=== PATIENT | female | born 1950 | race Caucasian/White ===

== ENCOUNTER 2016-04-19 08:19 | Inpatient (IN) | payer BC, MEDICARE ==
[2016-04-19] MEDS ORDERED: Bisacodyl SUPP* 10 MG SUPP PR PRN (11:52)
[2016-04-19] MEDS ORDERED: Magnesium Hydroxide LIQ* 30 ML UDC PO PRN (11:52)
[2016-04-19] MEDS ORDERED: Al Hydrox/Mg Hydrox/Simet LIQ* 30 ML UDC PO PRN (11:52)
[2016-04-19] MEDS ORDERED: LACTULOSE* 30 ML UDC PO PRN (11:52)
[2016-04-19] MEDS ORDERED: Dextrose 50% Syringe 50 ML* 25 GM/50 ML SYRINGE IV PUSH PRN (12:10)
[2016-04-19] MEDS: Insulin LISPRO* 1 UNITS UNIT SUBCUT SCH ×3 (13:57→22:07)
[2016-04-19] MEDS: traMADol TAB* 50 MG PO PRN ×3 (14:19→23:49)
[2016-04-19] MEDS: Nystatin TOP POWDER* 15 GM BTL TOPICAL SCH ×2 (16:08→21:07)
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
[2016-04-19] MEDS: metFORMIN* 500 MG TAB PO SCH (17:03)
[2016-04-19] MEDS: Acetaminophen TAB* 325 MG PO PRN ×2 (17:04→20:55)
[2016-04-19] MEDS: Senna TAB PO PRN (20:55)
[2016-04-19] MEDS: Enoxaparin(*) 30 MG/0.3 ML SYR SUBCUT SCH (20:57)
[2016-04-19] MEDS: Docusate CAP* 100 MG PO SCH (20:59)
[2016-04-20] MEDS: Acetaminophen TAB* 325 MG PO PRN ×4 (03:35→18:44)
[2016-04-20 07:10] LABS: Hematocrit 27 % (35-47); Hemoglobin 9.2 g/dl (12.0-16.0); Mean Corpuscular HGB Conc 34 g/dl (31-36); Mean Corpuscular Hemoglobin 31 pg (27-31); Mean Corpuscular Volume 91 fL (80-97); Mean Platelet Volume 8 um3 (7.4-10.4); Red Blood Count 2.97 10^6/ul (4.0-5.4); Red Cell Distribution Width 13 % (10.5-15); White Blood Count 7.6 10^3/ul (3.5-10.8)
[2016-04-20 07:21] LABS: Albumin 2.7 g/dL (3.2-5.2); BUN/Creatinine Ratio 24.7 (8-20); Calcium 8.9 mg/dL (8.6-10.3); EGFR African American 102.6 (>60); EGFR Non-African American 79.8 (>60); Globulin 3.5 g/dL (2-4); Potassium 3.8 mmol/L (3.5-5.0); Total Bilirubin 0.9 mg/dL (0.2-1.0); Total Protein 6.2 g/dL (6.4-8.9)
[2016-04-20] MEDS: Insulin LISPRO* 1 UNITS UNIT SUBCUT SCH ×4 (07:59→21:09)
[2016-04-20] MEDS: Docusate CAP* 100 MG PO SCH ×2 (08:18→21:09)
[2016-04-20] MEDS: metFORMIN* 500 MG TAB PO SCH ×2 (08:18→17:07)
[2016-04-20] MEDS: Aspirin EC Low Dose* 81 MG TAB.EC PO SCH (08:18)
[2016-04-20] MEDS: traMADol TAB* 50 MG PO PRN ×3 (08:19→16:14)
[2016-04-20] MEDS: Enoxaparin(*) 30 MG/0.3 ML SYR SUBCUT SCH ×2 (08:19→21:10)
[2016-04-20] MEDS: IRBESARTAN 300 MG PO SCH (08:41)
[2016-04-20] MEDS: Nystatin TOP POWDER* 15 GM BTL TOPICAL SCH ×3 (09:55→21:43)
[2016-04-20] MEDS ORDERED: Potassium Chlor TAB* 10 MEQ TAB.ER PO SCH (10:00)
[2016-04-20] MEDS: Senna TAB PO PRN (21:09)
[2016-04-20] MEDS ORDERED: guaiFENesin LIQ* 100 MG/5 ML UDC PO PRN (22:18)
[2016-04-20] MEDS: Benzocaine/Menthol LOZ* 1 LOZENGE PO PRN (22:33)
[2016-04-21] MEDS: traMADol TAB* 50 MG PO PRN ×5 (00:08→23:27)
[2016-04-21] MEDS: Acetaminophen TAB* 325 MG PO PRN ×4 (03:30→20:57)
[2016-04-21] MEDS: Insulin LISPRO* 1 UNITS UNIT SUBCUT SCH (07:55)
[2016-04-21] MEDS: POTASSIUM CHLOR 10 MEQ PO SCH (08:16)
[2016-04-21] MEDS: Aspirin EC Low Dose* 81 MG TAB.EC PO SCH (08:16)
[2016-04-21] MEDS: IRBESARTAN 300 MG PO SCH (08:16)
[2016-04-21] MEDS: metFORMIN* 500 MG TAB PO SCH ×2 (08:17→17:07)
[2016-04-21] MEDS: Docusate CAP* 100 MG PO SCH ×2 (08:17→19:37)
[2016-04-21] MEDS: Enoxaparin(*) 30 MG/0.3 ML SYR SUBCUT SCH ×2 (08:18→20:03)
[2016-04-21] MEDS ORDERED: Zinc Oxide 16% PASTE* (Butt Patse) 1 TUBE TOPICAL SCH (09:00)
[2016-04-21] MEDS: Benzocaine/Menthol LOZ* 1 LOZENGE PO PRN (13:49)
[2016-04-21] MEDS: Zinc Oxide 16% PASTE* (Butt Patse) 1 TUBE TOPICAL SCH (20:03)
[2016-04-22] MEDS: Zinc Oxide 16% PASTE* (Butt Patse) 1 TUBE TOPICAL SCH ×3 (00:08→17:26)
[2016-04-22] MEDS: Acetaminophen TAB* 325 MG PO PRN ×2 (03:56→10:45)
[2016-04-22] MEDS: Benzocaine/Menthol LOZ* 1 LOZENGE PO PRN ×2 (06:17→16:31)
[2016-04-22 07:06] LABS: Hematocrit 27 % (35-47); Hemoglobin 9.2 g/dl (12.0-16.0); Mean Corpuscular HGB Conc 34 g/dl (31-36); Mean Corpuscular Hemoglobin 31 pg (27-31); Mean Corpuscular Volume 92 fL (80-97); Mean Platelet Volume 7 um3 (7.4-10.4); Red Blood Count 2.98 10^6/ul (4.0-5.4); Red Cell Distribution Width 14 % (10.5-15)
[2016-04-22] MEDS: traMADol TAB* 50 MG PO PRN ×4 (08:23→20:51)
[2016-04-22] MEDS: Aspirin EC Low Dose* 81 MG TAB.EC PO SCH (08:23)
[2016-04-22] MEDS: metFORMIN* 500 MG TAB PO SCH ×2 (08:23→16:31)
[2016-04-22] MEDS: Docusate CAP* 100 MG PO SCH ×2 (08:23→20:52)
[2016-04-22] MEDS: Enoxaparin(*) 30 MG/0.3 ML SYR SUBCUT SCH ×2 (08:24→20:52)
[2016-04-22] MEDS: IRBESARTAN 300 MG PO SCH (08:24)
[2016-04-22] MEDS: POTASSIUM CHLOR 10 MEQ PO SCH (08:24)
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
[2016-04-23] MEDS: Acetaminophen TAB* 325 MG PO PRN ×5 (00:46→21:26)
[2016-04-23] MEDS: Zinc Oxide 16% PASTE* (Butt Patse) 1 TUBE TOPICAL SCH ×3 (00:46→16:08)
[2016-04-23] MEDS: traMADol TAB* 50 MG PO PRN ×4 (03:12→17:50)
[2016-04-23] MEDS: metFORMIN* 500 MG TAB PO SCH ×2 (07:55→16:07)
[2016-04-23] MEDS: Docusate CAP* 100 MG PO SCH ×2 (07:55→21:28)
[2016-04-23] MEDS: Aspirin EC Low Dose* 81 MG TAB.EC PO SCH (07:55)
[2016-04-23] MEDS: IRBESARTAN 300 MG PO SCH (07:56)
[2016-04-23] MEDS: Benzocaine/Menthol LOZ* 1 LOZENGE PO PRN (07:56)
[2016-04-23] MEDS: Enoxaparin(*) 30 MG/0.3 ML SYR SUBCUT SCH ×2 (07:58→21:26)
[2016-04-23] MEDS: Potassium Chloride LIQUID* 20 MEQ PACKET PO SCH (08:01)
[2016-04-24] MEDS: traMADol TAB* 50 MG PO PRN ×3 (01:05→13:29)
[2016-04-24] MEDS: Zinc Oxide 16% PASTE* (Butt Patse) 1 TUBE TOPICAL SCH ×3 (01:08→16:34)
[2016-04-24] MEDS: Acetaminophen TAB* 325 MG PO PRN ×3 (05:56→19:22)
[2016-04-24] MEDS: metFORMIN* 500 MG TAB PO SCH ×2 (08:08→17:03)
[2016-04-24] MEDS: Aspirin EC Low Dose* 81 MG TAB.EC PO SCH (08:08)
[2016-04-24] MEDS: Potassium Chloride LIQUID* 20 MEQ PACKET PO SCH (08:09)
[2016-04-24] MEDS: Docusate CAP* 100 MG PO SCH ×2 (08:10→20:23)
[2016-04-24] MEDS: Enoxaparin(*) 30 MG/0.3 ML SYR SUBCUT SCH ×2 (08:11→20:23)
[2016-04-24] MEDS: IRBESARTAN 300 MG PO SCH (08:11)
[2016-04-25] MEDS: Zinc Oxide 16% PASTE* (Butt Patse) 1 TUBE TOPICAL SCH ×3 (00:20→19:40)
[2016-04-25] MEDS: Acetaminophen TAB* 325 MG PO PRN ×3 (00:33→19:37)
[2016-04-25] MEDS: Benzocaine/Menthol LOZ* 1 LOZENGE PO PRN (00:33)
[2016-04-25] MEDS: Enoxaparin(*) 30 MG/0.3 ML SYR SUBCUT SCH ×2 (08:01→19:38)
[2016-04-25] MEDS: metFORMIN* 500 MG TAB PO SCH ×2 (08:01→16:44)
[2016-04-25] MEDS: Aspirin EC Low Dose* 81 MG TAB.EC PO SCH (08:02)
[2016-04-25] MEDS: traMADol TAB* 50 MG PO PRN ×3 (08:02→16:46)
[2016-04-25] MEDS: Potassium Chloride LIQUID* 20 MEQ PACKET PO SCH (08:02)
[2016-04-25] MEDS: Docusate CAP* 100 MG PO SCH ×2 (08:02→19:37)
[2016-04-25] MEDS: IRBESARTAN 300 MG PO SCH (08:03)
[2016-04-26] MEDS: traMADol TAB* 50 MG PO PRN ×3 (02:14→15:23)
[2016-04-26] MEDS: Zinc Oxide 16% PASTE* (Butt Patse) 1 TUBE TOPICAL SCH ×3 (02:32→17:12)
[2016-04-26] MEDS: Acetaminophen TAB* 325 MG PO PRN ×3 (06:33→19:49)
[2016-04-26] MEDS: IRBESARTAN 300 MG PO SCH (08:00)
[2016-04-26] MEDS: Docusate CAP* 100 MG PO SCH ×2 (08:00→19:49)
[2016-04-26] MEDS: Aspirin EC Low Dose* 81 MG TAB.EC PO SCH (08:00)
[2016-04-26] MEDS: metFORMIN* 500 MG TAB PO SCH ×2 (08:00→17:12)
[2016-04-26] MEDS: Potassium Chloride LIQUID* 20 MEQ PACKET PO SCH (08:02)
[2016-04-26] MEDS: Enoxaparin(*) 30 MG/0.3 ML SYR SUBCUT SCH ×2 (08:03→19:49)
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
[2016-04-27] MEDS: Zinc Oxide 16% PASTE* (Butt Patse) 1 TUBE TOPICAL SCH ×4 (02:19→16:11)
[2016-04-27] MEDS: traMADol TAB* 50 MG PO PRN ×3 (02:53→13:05)
[2016-04-27 07:57] LABS: Hematocrit 30 % (35-47); Hemoglobin 10.1 g/dl (12.0-16.0); Mean Corpuscular HGB Conc 34 g/dl (31-36); Mean Corpuscular Hemoglobin 31 pg (27-31); Mean Corpuscular Volume 92 fL (80-97); Mean Platelet Volume 8 um3 (7.4-10.4); Red Blood Count 3.28 10^6/ul (4.0-5.4); Red Cell Distribution Width 14 % (10.5-15); White Blood Count 6.5 10^3/ul (3.5-10.8)
[2016-04-27 08:07] LABS: BUN/Creatinine Ratio 23.3 (8-20); Calcium 9.1 mg/dL (8.6-10.3); EGFR African American 102.6 (>60); EGFR Non-African American 79.8 (>60); Globulin 3.6 g/dL (2-4); Potassium 3.8 mmol/L (3.5-5.0); Total Bilirubin 0.7 mg/dL (0.2-1.0); Total Protein 6.6 g/dL (6.4-8.9)
[2016-04-27] MEDS: Acetaminophen TAB* 325 MG PO PRN ×2 (08:18→11:26)
[2016-04-27] MEDS: Potassium Chloride LIQUID* 20 MEQ PACKET PO SCH (09:22)
[2016-04-27] MEDS: IRBESARTAN 300 MG PO SCH (09:22)
[2016-04-27] MEDS: Docusate CAP* 100 MG PO SCH ×2 (09:23→20:45)
[2016-04-27] MEDS: metFORMIN* 500 MG TAB PO SCH ×2 (09:23→16:39)
[2016-04-27] MEDS: Aspirin EC Low Dose* 81 MG TAB.EC PO SCH (09:23)
[2016-04-27] MEDS: Enoxaparin(*) 30 MG/0.3 ML SYR SUBCUT SCH ×2 (09:24→20:44)
[2016-04-27] MEDS: Senna TAB PO PRN (20:45)
[2016-04-28] MEDS: Zinc Oxide 16% PASTE* (Butt Patse) 1 TUBE TOPICAL SCH ×3 (02:08→21:25)
[2016-04-28] MEDS: Acetaminophen TAB* 325 MG PO PRN ×2 (04:59→11:48)
[2016-04-28] MEDS: IRBESARTAN 300 MG PO SCH (08:27)
[2016-04-28] MEDS: Docusate CAP* 100 MG PO SCH ×2 (08:28→20:11)
[2016-04-28] MEDS: Enoxaparin(*) 30 MG/0.3 ML SYR SUBCUT SCH ×2 (08:28→20:10)
[2016-04-28] MEDS: Potassium Chloride LIQUID* 20 MEQ PACKET PO SCH (08:28)
[2016-04-28] MEDS: metFORMIN* 500 MG TAB PO SCH ×2 (08:28→17:18)
[2016-04-28] MEDS: Aspirin EC Low Dose* 81 MG TAB.EC PO SCH (08:28)
[2016-04-28] MEDS: traMADol TAB* 50 MG PO PRN (12:46)
[2016-04-29] MEDS: Zinc Oxide 16% PASTE* (Butt Patse) 1 TUBE TOPICAL SCH ×3 (02:14→21:20)
[2016-04-29] MEDS: Acetaminophen TAB* 325 MG PO PRN ×3 (04:07→18:21)
[2016-04-29] MEDS: traMADol TAB* 50 MG PO PRN ×3 (08:15→21:16)
[2016-04-29] MEDS: metFORMIN* 500 MG TAB PO SCH ×2 (08:15→17:12)
[2016-04-29] MEDS: Enoxaparin(*) 30 MG/0.3 ML SYR SUBCUT SCH ×2 (08:16→21:15)
[2016-04-29] MEDS: Potassium Chloride LIQUID* 20 MEQ PACKET PO SCH (08:16)
[2016-04-29] MEDS: IRBESARTAN 300 MG PO SCH (08:16)
[2016-04-29] MEDS: Docusate CAP* 100 MG PO SCH ×2 (08:16→21:21)
[2016-04-29] MEDS: Aspirin EC Low Dose* 81 MG TAB.EC PO SCH (08:16)
[2016-04-29] MEDS: Cetirizine* 10 MG TAB PO SCH (11:42)
[2016-04-29] MEDS: Fluticasone NASAL SPRAY 50MCG* 16 gm SPRAY BTL BOTH NARES SCH (11:55)
[2016-04-30] MEDS: Zinc Oxide 16% PASTE* (Butt Patse) 1 TUBE TOPICAL SCH ×3 (01:52→17:13)
[2016-04-30] MEDS: traMADol TAB* 50 MG PO PRN ×2 (06:20→21:10)
[2016-04-30] MEDS: metFORMIN* 500 MG TAB PO SCH ×2 (07:37→17:12)
[2016-04-30] MEDS: Enoxaparin(*) 30 MG/0.3 ML SYR SUBCUT SCH ×2 (07:37→21:09)
[2016-04-30] MEDS: Aspirin EC Low Dose* 81 MG TAB.EC PO SCH (07:41)
[2016-04-30] MEDS: IRBESARTAN 300 MG PO SCH (07:41)
[2016-04-30] MEDS: Docusate CAP* 100 MG PO SCH ×2 (07:42→21:07)
[2016-04-30] MEDS: Fluticasone NASAL SPRAY 50MCG* 16 gm SPRAY BTL BOTH NARES SCH (07:46)
[2016-04-30] MEDS: Potassium Chloride LIQUID* 20 MEQ PACKET PO SCH (09:00)
[2016-04-30] MEDS: Cetirizine* 10 MG TAB PO SCH (17:23)
[2016-04-30] MEDS: Acetaminophen TAB* 325 MG PO PRN (18:00)
[2016-05-01] MEDS: Acetaminophen TAB* 325 MG PO PRN ×2 (05:55→13:26)
[2016-05-01] MEDS: Zinc Oxide 16% PASTE* (Butt Patse) 1 TUBE TOPICAL SCH ×3 (05:56→16:54)
[2016-05-01] MEDS: metFORMIN* 500 MG TAB PO SCH ×2 (07:58→16:54)
[2016-05-01] MEDS: Aspirin EC Low Dose* 81 MG TAB.EC PO SCH (07:59)
[2016-05-01] MEDS: Docusate CAP* 100 MG PO SCH ×2 (07:59→21:37)
[2016-05-01] MEDS: Enoxaparin(*) 30 MG/0.3 ML SYR SUBCUT SCH ×2 (08:00→20:41)
[2016-05-01] MEDS: Potassium Chloride LIQUID* 20 MEQ PACKET PO SCH (08:02)
[2016-05-01] MEDS: IRBESARTAN 300 MG PO SCH (08:03)
[2016-05-01] MEDS: Fluticasone NASAL SPRAY 50MCG* 16 gm SPRAY BTL BOTH NARES SCH (08:04)
[2016-05-01] MEDS: Cetirizine* 10 MG TAB PO SCH (16:54)
[2016-05-01] MEDS: traMADol TAB* 50 MG PO PRN (20:42)
[2016-05-02] MEDS: Acetaminophen TAB* 325 MG PO PRN ×3 (03:14→12:36)
[2016-05-02] MEDS: Zinc Oxide 16% PASTE* (Butt Patse) 1 TUBE TOPICAL SCH ×3 (03:14→17:18)
[2016-05-02] MEDS: metFORMIN* 500 MG TAB PO SCH ×2 (08:40→17:17)
[2016-05-02] MEDS: Docusate CAP* 100 MG PO SCH ×2 (08:40→20:24)
[2016-05-02] MEDS: Enoxaparin(*) 30 MG/0.3 ML SYR SUBCUT SCH ×2 (08:40→20:23)
[2016-05-02] MEDS: Aspirin EC Low Dose* 81 MG TAB.EC PO SCH (08:40)
[2016-05-02] MEDS: IRBESARTAN 300 MG PO SCH (08:41)
[2016-05-02] MEDS: Fluticasone NASAL SPRAY 50MCG* 16 gm SPRAY BTL BOTH NARES SCH (08:41)
[2016-05-02] MEDS: Potassium Chloride LIQUID* 20 MEQ PACKET PO SCH (08:41)
[2016-05-02] MEDS: traMADol TAB* 50 MG PO PRN ×2 (10:56→22:03)
[2016-05-02] MEDS: Cetirizine* 10 MG TAB PO SCH (17:18)
[2016-05-03] MEDS: Zinc Oxide 16% PASTE* (Butt Patse) 1 TUBE TOPICAL SCH ×3 (02:50→16:10)
[2016-05-03] MEDS: metFORMIN* 500 MG TAB PO SCH ×2 (08:24→17:17)
[2016-05-03] MEDS: Enoxaparin(*) 30 MG/0.3 ML SYR SUBCUT SCH ×2 (08:25→20:08)
[2016-05-03] MEDS: Potassium Chloride LIQUID* 20 MEQ PACKET PO SCH (08:25)
[2016-05-03] MEDS: Aspirin EC Low Dose* 81 MG TAB.EC PO SCH (08:25)
[2016-05-03] MEDS: Acetaminophen TAB* 325 MG PO PRN ×3 (08:25→17:18)
[2016-05-03] MEDS: Fluticasone NASAL SPRAY 50MCG* 16 gm SPRAY BTL BOTH NARES SCH (08:26)
[2016-05-03] MEDS: Docusate CAP* 100 MG PO SCH ×2 (08:26→20:08)
[2016-05-03] MEDS: IRBESARTAN 300 MG PO SCH (08:26)
[2016-05-03] MEDS: traMADol TAB* 50 MG PO PRN (10:23)
--- NOTE | 2016-05-03 12:56 | PMRUTEAM ---
PMRU: Goals Current Status: Nursing: Current Status Skin Deviations [Right Coccyx] Abrasion Skin Deviations [Generalized] Bruise Skin Deviations [Left Lateral Abrasion Calf] Skin Deviations [Right Knee] Abrasion Skin Deviations [Bilateral Other Groin] Skin Deviations [Bilateral Rash Breast] Skin Deviations [Left Hip] Incision Skin Deviation Description [ improving Right Coccyx] Skin Deviation Description [ bruising noted to chest, abdomen, left leg, right Generalized] groin Skin Deviation Description [ healing Left Lateral Calf] Skin Deviation Description [ healing Right Knee] Skin Deviation Description [ no rash noted Bilateral Groin] Skin Deviation Description [ almost clear Bilateral Breast] Skin Deviation Description [ clean dry and suctures intact Left Hip] Bladder Current Status continent, pt does own pericare Bowel Current Status continent, staff performs hygiene Nutrition Current Status adequate Medication Current Status meds taken whole with water Physical Therapy: Current Status Bed Mobility Assistance Supervision Transfer Moblility Assistance Supervision Transfer/Bed Mobility Rolling Walker Recommended Devices Transfer Mobility Comment Pt. pivots on her R foot to accomplish SPT using a 2 w/w. Ambulation Assistance Not Tested,Unable Stairs Assistance Not Tested Curb Not Tested Curb Assistive Devices Rolling Walker Manual Wheelchair Control/ Bilateral UE's Technique Wheelchair Propulsion Ability Standby Assistance Wheelchair Distance (ft) 150' x 2 Occupational Therapy: Current Status Upper Body Dressing Supervision Upper Body Dressing Progress setupA Lower Body Dressing Min Assist Lower Body Dressing Progress 2 person assist in standing, assist to thread/don socks as needed with AE Bathing Min Assist Bathing Progress +long handled sponge Toileting Min Assist,Mod Assist Toileting Progress 2 person assist in standing Toilet Transfer Min Assist Shower Transfer Min Assist,Mod Assist Shower Transfer Progress roll in shower chair with SPT w/c to/from shower bench +grab bar Eating Independent Rec Therapy: Current Status Summary of Assessment and RT assessment complete and pt. is aware of RT Clinical Impression services. Pt. has been open to leisure visits and engaged in them. Support has been provided as needed. Treatment Goals Pt. will engage in leisure activities while on the unit. Treatment Plan Provide RT services and encourage involvement. Provide emotional support as needed. Nutrition: Current Status Monitoring hx DM2, for which she had started eating more healthfully - has lost 90# in past 18 months, and has reduced her A1c from 7.9 to 5.5%. Consuming 100% of consistent carb diet. FS controlled in 100s-120s; metformin only. No new DM education required at this time. Last BM 04/25; bowel meds administered. Nsg states that pt has been able to go for longer periods without pain meds, which should help promote bowel regularity. Encourage fluids. Goals: Physical Therapy: Initial Goals Bed Mobility Assistance Independent Transfer Mobility Assistance Independent Transfer/Bed Mobility Rolling Walker Recommended Devices Wheelchair Propulsion Ability Independent Wheelchair Distance (ft) 150 Stairs Assistance Independent Stair Recommended Devices One Rail,Two Rails Number of Stairs 12 Home Exercise Program Independent Assistance Physical Therapy: Updated Goals Bed Mobility Assistance Independent Transfer Mobility Assistance Independent Transfer/Bed Mobility Rolling Walker Recommended Devices Wheelchair Propulsion Ability Independent Wheelchair Distance (ft) 150 Stairs Assistance Independent Stairs Recommended Devices One Rail,Two Rails Number of Stairs 12 Home Exercise Program Independent Assistance Occupational Therapy: Initial Goals Goals to be Completed in (Days 14-21 ) Upper Body Bathing Routine Independent Lower Body Bathing Routine Modified Independent with Upper Body Dressing Routine Independent Lower Body Dressing Routine Modified Independent with Toilet Hygeine and Clothing Modified Independent with Management Routine Toilet Transfer Routine Modified Independent with Tub Transfer Routine Modified Independent with Functional Transfers for ADL Modified Independent with Grooming Routine Independent Feeding Routine Independent Nursing: Goals Bladder Goal continent, self hygiene Bowel Goal continent, self hygiene Nutrition Goal adequate Medication Goal self administration, identify meds Nutrition: Goals Intervention Goals 1. adequate po intake to support post-op healing and maintenance of lean body mass without add'l wt gain 2. glycemic control within inpateint parameters; no s/sx hypo- or hyperglycemia 3. skin to coccyx will show evidence of healing 4. regulation of post-op bowel pattern; no c/o constipation (or diarrhea) Care Plan: Care Plan ADL's - Improve/Maintain Start: 04/20/16 16:11 Freq: DAILY Status: Active Target: Activity Type Activity Date Activity User E-Sign Co-Sign Detail Recorded Client Recorded Date Recorded By Document 05/02/16 11:46 [id number] [email or web address] 05/02/16 11:46 [id number] 05/02/16 11:46 PMRU Outcome: ADL's/ADL Transfers Orders/Interventions Occupational Therapy Evaluation & Treatment Communication Tool in Patient Room Device Yes Patient to receive OT 5x/wk for 60-120 Therex min/day Self Care Management Group Therapy UE/LE ADL's with Assist Yes: Dayana ADL Transfers with Assist Yes: Dayana Toileting: Transfers,Clothing Management Yes: Dayana ,Hygeine w/Assist Progression Toward Outcome/Goals Progressing Cardiovascular- Improve/Maintain Start: 04/19/16 14:31 Freq: DAILY Status: Complete Target: Activity Type Activity Date Activity User E-Sign Co-Sign Detail Recorded Client Recorded Date Recorded By Document 04/26/16 16:34 [id number] [id number] 04/26/16 16:45 [id number] 04/26/16 16:34 PMRU Outcome: Cardiovascular Vital Signs q Shift for 48hrs Then BID Yes Daily Weight Ordered No Current Cardiovascular Outcome/Goal Maintain/ Achieve Baseline HR, BP , Perfusion Free of Abnormal Cardiac Symptoms Outcomes/Goals Met Maintain/ Achieve Baseline HR, BP , Perfusion Maintain/ Improve Perfusion Coping/Psych-Improve/Maintain Start: 04/19/16 14:31 Freq: DAILY Status: Complete Target: Activity Type Activity Date Activity User E-Sign Co-Sign Detail Recorded Client Recorded Date Recorded By Document 04/24/16 08:00 [id number] 04/24/16 11:26 [id number] 04/24/16 08:00 PMRU Outcome: Coping/Psychosocial Coping Outcome/Goals Verbalization of Acceptance of Rehab Admit Verbalization of Sense of Control Over Health Status Utilization of Appropriate Problem Solving Techniques Willingness to Participate in Treatment Plan and Basic Needs Utilization of Available Support Systems Absence of Destructive Behavior to Self/Others Psychosocial Outcome/Goals Maintain/ Improve Emotional Health Demonstrates Knowledge of Healthy Coping Mechanisms Available Cooperate/ Participate in Plan Coping Outcome/Goals Met Demonstrates Understanding of Rehab Admit and Goal Setting Process Starts to Plan for Necessary Lifestyle Role Changes Psychosocial Outcome/Goals Met Demonstrated Knowledge of Healthy Coping Mechanisms Available Cooperate/ Participated in Plan DVT Prophylaxis- Improve/Maintain Start: 04/19/16 14:31 Freq: DAILY Status: Complete Target: Activity Type Activity Date Activity User E-Sign Co-Sign Detail Recorded Client Recorded Date Recorded By Document 04/26/16 16:34 [id number] [id number] 04/26/16 16:45 [id number] 04/26/16 16:34 PMRU Outcome: DVT Prophylaxis Outcome/Goals Remains Free of DVT Complies with DVT Prophylaxis /Treatment Demonstrates Knowledge of DVT Prevention/ Treatment Other Outcome/Goals Met Remains Free of DVT Discharge Planning - Improve/Maintain Start: 04/19/16 14:31 Freq: DAILY Status: Active Target: Activity Type Activity Date Activity User E-Sign Co-Sign Detail Recorded Client Recorded Date Recorded By Document 05/02/16 23:59 [id number] [id number] 05/02/16 23:59 [id number] 05/02/16 23:59 PMRU Outcome: Discharge Planning Identify Patient Needs yes Update Patient Family No Outcome/Goals Demonstrates Understanding of Discharge Plan Progression Toward Outcome/Goals Progressing Education-Improve/Maintain Start: 04/19/16 14:31 Freq: DAILY Status: Active Target: Activity Type Activity Date Activity User E-Sign Co-Sign Detail Recorded Client Recorded Date Recorded By Document 05/03/16 11:16 [id number] 05/03/16 11:16 [id number] 05/03/16 11:16 PMRU Outcome: Education Outcome/Goals Demonstrate/ Verbalize Understanding of Written Discharge Instructions Demonstrates Skills Encourage Questions Progression Toward Outcome/Goals Progressing /GI-Improve/Maintain Start: 04/19/16 14:31 Freq: DAILY Status: Active Target: Activity Type Activity Date Activity User E-Sign Co-Sign Detail Recorded Client Recorded Date Recorded By Document 05/03/16 11:16 [id number] [email or web address] 05/03/16 11:16 [id number] 05/03/16 11:16 PMRU Outcome: Genitourinary/ Gastrointestinal Genitourinary- Outcome/Goals Maintain/ Achieve Urinary Continence Maintain/ Achieve Adequate Urinary Output Remain Free of Hospital- Acquired UTI Gastrointestinal-Outcome/Goals Maintain/ Achieve Bowel Regularity in Accordance with Pt's Baseline Remain Free of Emesis Prevent Constipation Laxatives as Ordered Progression Toward Outcome/Goals - Progressing Progression Toward Outcome/Goals - GI Progressing Outcome/Goals Met Comment pt used commode yesterday Medication Administration Start: 04/19/16 14:31 Freq: DAILY Status: Complete Target: Activity Type Activity Date Activity User E-Sign Co-Sign Detail Recorded Client Recorded Date Recorded By Document 04/24/16 08:00 [id number] [email or web address] 04/24/16 11:26 [id number] 04/24/16 08:00 PMRU Outcome: Medication Administration Assess Patient Knowledge/Teach Med Yes Education for all Meds Outcome/Goals Patient Independent with Medication Administration at Home Demonstrates Understanding Outcome/Goals Met Patient Independent with Medication Administration at Home Demonstrates Understanding Is Patient Going Home on Lovenox? No Metabolic Status- Improve/Maintain Start: 04/19/16 14:31 Freq: DAILY Status: Complete Target: Activity Type Activity Date Activity User E-Sign Co-Sign Detail Recorded Client Recorded Date Recorded By Document 04/25/16 18:38 [id number] [id number] 04/25/16 18:39 [id number] 04/25/16 18:38 PMRU Outcome: Metabolic Status Have Fingersticks Been Ordered Yes Fingerstick Order Frequency Q Day Outcome/Goals Maintain/ Improve Metabolic Status Demonstrate Knowledge of Prevention/ Treatment of Metabolic Imbalances Outcome/Goals Met Maintain/ Improve Metabolic Status Demonstrate Knowledge of Prevention/ Treatment of Metabolic Imbalances Mobility- Improve/Maintain Start: 04/19/16 11:57 Freq: DAILY Status: Active Target: Activity Type Activity Date Activity User E-Sign Co-Sign Detail Recorded Client Recorded Date Recorded By Document 05/02/16 12:41 [id number] [email or web address] 05/02/16 12:41 [id number] 05/02/16 12:41 PMRU Outcome: Mobility Physical Therapy Evaluation and Yes Treatment Activity OOB with Assistance Yes TTWB Yes: LLE Device Yes Assistance Yes Patient to be seen 5x/wk for 60-120 min/ Therex day for: Mobility Training W/C Mobility Balance Outcome/Goals Maintain/ Achieve Baseline Mobility Status Improve Mobility Status Demonstrates Proper Use of Assistive Devices Free from Complications of Immobility Progression Toward Outcome/Goals Progressing Bed Mobility Yes: Independent Transfers Yes: Modified independent with RW Gait x ft No W/C Mobility x ft Yes: Independent 150 ' Up/Down Stairs Yes: Independent flight With HEP Yes: Independent Pain/Comfort- Improve/Maintain Start: 04/19/16 14:31 Freq: DAILY Status: Complete Target: Activity Type Activity Date Activity User E-Sign Co-Sign Detail Recorded Client Recorded Date Recorded By Document 04/25/16 18:38 [id number] [email or web address] 04/25/16 18:39 [id number] 04/25/16 18:38 PMRU Outcome: Pain/Comfort Outcome/Goals Demonstrates Knowledge and Use of Available Comfort Measures Achieves Acceptable Comfort/Pain Level as Determined by Patient/Condit Maintain Comfort Level Allowing Patient to Fully Participate in Rehab Outcome/Goals Met Demonstrates Knowledge and Use of Available Comfort Measures Achieves Acceptable Comfort/Pain Level as Determined by Patient/Condit Respiratory - Improve/Maintain Start: 04/19/16 14:31 Freq: DAILY Status: Active Target: Activity Type Activity Date Activity User E-Sign Co-Sign Detail Recorded Client Recorded Date Recorded By Document 05/03/16 11:16 [id number] [email or web address] 05/03/16 11:16 [id number] 05/03/16 11:16 PMRU Outcome: Respiratory Does Patient Have a Trach No Outcome/Goals Prevent Pneumonia/ Atelectasis Remain Aspiration Free Progression Toward Outcome/Goals Progressing Outcome/Goals Met Comment C-Pap in place Safety- Improve/Maintain Start: 04/19/16 14:31 Freq: DAILY Status: Complete Target: Activity Type Activity Date Activity User E-Sign Co-Sign Detail Recorded Client Recorded Date Recorded By Document 04/22/16 19:54 [id number] [email or web address] 04/22/16 19:54 [id number] 04/22/16 19:54 PMRU Outcome: Safety Outcome/Goals Prevent Falls/ Injury Progression Toward Outcome/Goals Progressing Outcome/Goals Met Remain Free of Injury or Harm Cooperates with Safety Measures for Least Restrictive Environment Skin- Improve/Maintain Start: 04/19/16 14:31 Freq: DAILY Status: Active Target: Activity Type Activity Date Activity User E-Sign Co-Sign Detail Recorded Client Recorded Date Recorded By Document 05/03/16 11:16 [id number] [email or web address] 05/03/16 11:16 [id number] 05/03/16 11:16 PMRU Outcome: Skin Skin Risk Level Medium Skin Orders Dressing Change Air Mattress Spenco Boots Turn/Position q2hr While in Bed Outcome/Goals Maintain/ Improve Skin Intergrity Maintain/ Improve Wound Status Surgical Incisions Healing Progression Toward Outcome/Goals Progressing Medicine Note: Length of Stay: 8 days Anticipated Discharge Destination: Tentative Discharge Date: 05/11/16 Discharged to: Home
[2016-05-03] MEDS: Cetirizine* 10 MG TAB PO SCH (20:16)
[2016-05-04] MEDS: Zinc Oxide 16% PASTE* (Butt Patse) 1 TUBE TOPICAL SCH ×3 (02:04→17:21)
[2016-05-04 06:31] LABS: Hematocrit 32 % (35-47); Hemoglobin 10.8 g/dl (12.0-16.0); Mean Corpuscular HGB Conc 34 g/dl (31-36); Mean Corpuscular Hemoglobin 31 pg (27-31); Mean Corpuscular Volume 93 fL (80-97); Mean Platelet Volume 8 um3 (7.4-10.4); Red Blood Count 3.45 10^6/ul (4.0-5.4); Red Cell Distribution Width 15 % (10.5-15); White Blood Count 4.9 10^3/ul (3.5-10.8)
[2016-05-04 06:46] LABS: Albumin 3.2 g/dL (3.2-5.2); BUN/Creatinine Ratio 21.1 (8-20); Calcium 9.4 mg/dL (8.6-10.3); EGFR African American 97.9 (>60); EGFR Non-African American 76.1 (>60); Globulin 3.3 g/dL (2-4); Potassium 4.1 mmol/L (3.5-5.0); Total Bilirubin 0.6 mg/dL (0.2-1.0); Total Protein 6.5 g/dL (6.4-8.9)
[2016-05-04] MEDS: traMADol TAB* 50 MG PO PRN ×2 (07:36→11:26)
[2016-05-04] MEDS: Potassium Chloride LIQUID* 20 MEQ PACKET PO SCH (07:43)
[2016-05-04] MEDS: Enoxaparin(*) 30 MG/0.3 ML SYR SUBCUT SCH ×2 (07:44→19:59)
[2016-05-04] MEDS: Fluticasone NASAL SPRAY 50MCG* 16 gm SPRAY BTL BOTH NARES SCH (07:44)
[2016-05-04] MEDS: Docusate CAP* 100 MG PO SCH ×2 (07:45→20:02)
[2016-05-04] MEDS: Aspirin EC Low Dose* 81 MG TAB.EC PO SCH (07:45)
[2016-05-04] MEDS: IRBESARTAN 300 MG PO SCH (07:45)
[2016-05-04] MEDS: metFORMIN* 500 MG TAB PO SCH ×2 (07:45→17:20)
[2016-05-04] MEDS: Cetirizine* 10 MG TAB PO SCH (17:20)
[2016-05-05] MEDS: Zinc Oxide 16% PASTE* (Butt Patse) 1 TUBE TOPICAL SCH ×3 (01:49→17:11)
[2016-05-05] MEDS: Fluticasone NASAL SPRAY 50MCG* 16 gm SPRAY BTL BOTH NARES SCH (08:16)
[2016-05-05] MEDS: Docusate CAP* 100 MG PO SCH ×2 (08:16→19:50)
[2016-05-05] MEDS: Aspirin EC Low Dose* 81 MG TAB.EC PO SCH (08:16)
[2016-05-05] MEDS: metFORMIN* 500 MG TAB PO SCH ×2 (08:16→17:06)
[2016-05-05] MEDS: IRBESARTAN 300 MG PO SCH (08:16)
[2016-05-05] MEDS: Potassium Chloride LIQUID* 20 MEQ PACKET PO SCH (08:16)
[2016-05-05] MEDS: traMADol TAB* 50 MG PO PRN ×2 (08:17→21:30)
[2016-05-05] MEDS: Enoxaparin(*) 30 MG/0.3 ML SYR SUBCUT SCH ×2 (08:20→19:50)
[2016-05-05] MEDS: Acetaminophen TAB* 325 MG PO PRN ×2 (12:54→17:09)
[2016-05-05] MEDS: Cetirizine* 10 MG TAB PO SCH (17:06)
[2016-05-06] MEDS: Zinc Oxide 16% PASTE* (Butt Patse) 1 TUBE TOPICAL SCH ×3 (02:24→16:14)
[2016-05-06] MEDS: Potassium Chloride LIQUID* 20 MEQ PACKET PO SCH (07:59)
[2016-05-06] MEDS: Docusate CAP* 100 MG PO SCH ×2 (07:59→20:11)
[2016-05-06] MEDS: traMADol TAB* 50 MG PO PRN ×3 (07:59→20:10)
[2016-05-06] MEDS: Aspirin EC Low Dose* 81 MG TAB.EC PO SCH (07:59)
[2016-05-06] MEDS: metFORMIN* 500 MG TAB PO SCH ×2 (07:59→16:57)
[2016-05-06] MEDS: IRBESARTAN 300 MG PO SCH (07:59)
[2016-05-06] MEDS: Fluticasone NASAL SPRAY 50MCG* 16 gm SPRAY BTL BOTH NARES SCH (08:01)
[2016-05-06] MEDS: Enoxaparin(*) 30 MG/0.3 ML SYR SUBCUT SCH ×2 (08:02→20:08)
[2016-05-06] MEDS: Acetaminophen TAB* 325 MG PO PRN (16:51)
[2016-05-06] MEDS: Cetirizine* 10 MG TAB PO SCH (17:12)
[2016-05-07] MEDS: Zinc Oxide 16% PASTE* (Butt Patse) 1 TUBE TOPICAL SCH ×3 (05:16→20:42)
[2016-05-07] MEDS: Aspirin EC Low Dose* 81 MG TAB.EC PO SCH (09:05)
[2016-05-07] MEDS: Docusate CAP* 100 MG PO SCH ×2 (09:06→20:44)
[2016-05-07] MEDS: Enoxaparin(*) 30 MG/0.3 ML SYR SUBCUT SCH ×2 (09:06→20:39)
[2016-05-07] MEDS: Acetaminophen TAB* 325 MG PO PRN ×2 (09:06→13:34)
[2016-05-07] MEDS: metFORMIN* 500 MG TAB PO SCH ×2 (09:06→17:12)
[2016-05-07] MEDS: IRBESARTAN 300 MG PO SCH (09:06)
[2016-05-07] MEDS: Fluticasone NASAL SPRAY 50MCG* 16 gm SPRAY BTL BOTH NARES SCH (09:08)
[2016-05-07] MEDS: Potassium Chloride LIQUID* 20 MEQ PACKET PO SCH (09:08)
[2016-05-07] MEDS: traMADol TAB* 50 MG PO PRN (20:39)
[2016-05-07] MEDS: Cetirizine* 10 MG TAB PO SCH (20:42)
[2016-05-08] MEDS: Zinc Oxide 16% PASTE* (Butt Patse) 1 TUBE TOPICAL SCH ×3 (02:30→21:47)
[2016-05-08] MEDS: Potassium Chloride LIQUID* 20 MEQ PACKET PO SCH (08:45)
[2016-05-08] MEDS: Fluticasone NASAL SPRAY 50MCG* 16 gm SPRAY BTL BOTH NARES SCH (08:45)
[2016-05-08] MEDS: Aspirin EC Low Dose* 81 MG TAB.EC PO SCH (08:45)
[2016-05-08] MEDS: IRBESARTAN 300 MG PO SCH (08:45)
[2016-05-08] MEDS: metFORMIN* 500 MG TAB PO SCH ×2 (08:46→17:11)
[2016-05-08] MEDS: Enoxaparin(*) 30 MG/0.3 ML SYR SUBCUT SCH ×2 (08:46→21:03)
[2016-05-08] MEDS: Acetaminophen TAB* 325 MG PO PRN ×2 (08:46→13:09)
[2016-05-08] MEDS: Docusate CAP* 100 MG PO SCH ×2 (08:46→21:03)
[2016-05-08] MEDS: Cetirizine* 10 MG TAB PO SCH (17:47)
[2016-05-09] MEDS: Zinc Oxide 16% PASTE* (Butt Patse) 1 TUBE TOPICAL SCH ×3 (01:22→15:57)
[2016-05-09] MEDS: metFORMIN* 500 MG TAB PO SCH ×2 (08:00→16:35)
[2016-05-09] MEDS: Potassium Chloride LIQUID* 20 MEQ PACKET PO SCH (08:23)
[2016-05-09] MEDS: Fluticasone NASAL SPRAY 50MCG* 16 gm SPRAY BTL BOTH NARES SCH (08:23)
[2016-05-09] MEDS: IRBESARTAN 300 MG PO SCH (08:24)
[2016-05-09] MEDS: Aspirin EC Low Dose* 81 MG TAB.EC PO SCH (08:24)
[2016-05-09] MEDS: Docusate CAP* 100 MG PO SCH ×2 (08:25→19:55)
[2016-05-09] MEDS: Enoxaparin(*) 30 MG/0.3 ML SYR SUBCUT SCH ×2 (08:26→19:54)
[2016-05-09] MEDS: Acetaminophen TAB* 325 MG PO PRN ×2 (13:38→22:23)
[2016-05-09] MEDS: Cetirizine* 10 MG TAB PO SCH (16:37)
[2016-05-10] MEDS: Zinc Oxide 16% PASTE* (Butt Patse) 1 TUBE TOPICAL SCH ×3 (06:30→16:30)
[2016-05-10] MEDS: Aspirin EC Low Dose* 81 MG TAB.EC PO SCH (07:37)
[2016-05-10] MEDS: metFORMIN* 500 MG TAB PO SCH ×2 (07:37→16:57)
[2016-05-10] MEDS: IRBESARTAN 300 MG PO SCH (07:37)
[2016-05-10] MEDS: Potassium Chloride LIQUID* 20 MEQ PACKET PO SCH (07:37)
[2016-05-10] MEDS: Fluticasone NASAL SPRAY 50MCG* 16 gm SPRAY BTL BOTH NARES SCH (07:38)
[2016-05-10] MEDS: Enoxaparin(*) 30 MG/0.3 ML SYR SUBCUT SCH ×2 (07:40→20:06)
[2016-05-10] MEDS: Docusate CAP* 100 MG PO SCH ×2 (07:43→20:08)
[2016-05-10] MEDS: traMADol TAB* 50 MG PO PRN ×2 (09:47→21:52)
--- NOTE | 2016-05-10 12:35 | PMRUTEAM ---
PMRU: Goals Current Status: Nursing: Current Status Skin Deviations [Right Coccyx] Pressure Ulcer Skin Deviations [Generalized] Bruise Skin Deviations [Left Lateral Abrasion Calf] Skin Deviations [Right Knee] Abrasion Skin Deviations [Bilateral Other Groin] Skin Deviations [Bilateral Rash Breast] Skin Deviations [Left Hip] Incision Skin Deviation Description [ dressing intact Right Coccyx] Skin Deviation Description [ bruising noted to chest, abdomen, left leg, right Generalized] groin Skin Deviation Description [ healing Left Lateral Calf] Skin Deviation Description [ healing Right Knee] Skin Deviation Description [ no rash noted Bilateral Groin] Skin Deviation Description [ mostly healed, patient applies paste as needed Bilateral Breast] Skin Deviation Description [ steri stripes Left Hip] Bladder Current Status continent, pt does own pericare Bowel Current Status continent, staff performs hygiene Nutrition Current Status adequate Medication Current Status meds taken whole with water Physical Therapy: Current Status Bed Mobility Assistance Supervision Transfer Moblility Assistance Supervision Transfer/Bed Mobility Rolling Walker Recommended Devices Transfer Mobility Comment Pt. pivots on her R foot to accomplish SPT using a 2 w/w. Ambulation Assistance Supervision Ambulation Assistive Devices Rolling Walker Number of Feet Patient 50' Ambulated Ambulation Comment Pt. is able to maintain PWB with amb and transfers . Stairs Assistance Not Tested Curb Not Tested Curb Assistive Devices Rolling Walker Manual Wheelchair Control/ Bilateral UE's Technique Wheelchair Propulsion Ability Independent Wheelchair Distance (ft) 150' Occupational Therapy: Current Status Upper Body Dressing Independent Upper Body Dressing Progress setupA Lower Body Dressing Ind with Adaptive Equip Lower Body Dressing Progress 2 person assist in standing, assist to thread/don socks as needed with AE Bathing Ind with Adaptive Equip Bathing Progress +long handled sponge Toileting Ind with Adaptive Equip Toileting Progress 2 person assist in standing Toilet Transfer Ind with Adaptive Equip Shower Transfer Supervision Shower Transfer Progress roll in shower chair with SPT w/c to/from shower bench +grab bar Eating Independent Rec Therapy: Current Status Summary of Assessment and RT assessment complete and pt. is aware of RT Clinical Impression services. Pt. has been open to leisure visits and engaged in them. Support has been provided as needed. Treatment Goals Pt. will engage in leisure activities while on the unit. Treatment Plan Provide RT services and encourage involvement. Provide emotional support as needed. Social Work: Current Status Discharge Plan Return home with home care svs and family support Potential for Family Training pt's family is involved and supportive Anticipated Discharge Home Destination Discharge With home care svs and family support Nutrition: Current Status Monitoring pt continues to eat well; 100% of consistent carb diet. FS controlled (88-122) w/metformin and diet only. No new DM education required at this time. Bowel pattern regulating now (BMs 05/06, 05/08, ). Appears to be meeting goals as outlined below . Goals: Physical Therapy: Initial Goals Bed Mobility Assistance Independent Transfer Mobility Assistance Independent Transfer/Bed Mobility Rolling Walker Recommended Devices Wheelchair Propulsion Ability Independent Wheelchair Distance (ft) 150 Stairs Assistance Independent Stair Recommended Devices One Rail,Two Rails Number of Stairs 12 Home Exercise Program Independent Assistance Physical Therapy: Updated Goals Bed Mobility Assistance Independent Transfer Mobility Assistance Independent Transfer/Bed Mobility Rolling Walker Recommended Devices Ambulation Assistance Independent Ambulation Assistive Devices Rolling Walker Ambulation Distance (ft) 50' Wheelchair Propulsion Ability Independent Wheelchair Distance (ft) 150 Stairs Assistance Independent Stairs Recommended Devices One Rail,Two Rails Number of Stairs 12 Home Exercise Program Independent Assistance Occupational Therapy: Initial Goals Goals to be Completed in (Days 14-21 ) Upper Body Bathing Routine Independent Lower Body Bathing Routine Modified Independent with Upper Body Dressing Routine Independent Lower Body Dressing Routine Modified Independent with Toilet Hygeine and Clothing Modified Independent with Management Routine Toilet Transfer Routine Modified Independent with Tub Transfer Routine Modified Independent with Functional Transfers for ADL Modified Independent with Grooming Routine Independent Feeding Routine Independent Nursing: Goals Bladder Goal continent, self hygiene Bowel Goal continent, self hygiene Nutrition Goal adequate Medication Goal self administration, identify meds Nutrition: Goals Intervention Goals 1. adequate po intake to support post-op healing and maintenance of lean body mass without add'l wt gain 2. glycemic control within inpateint parameters; no s/sx hypo- or hyperglycemia 3. skin to coccyx will show evidence of healing 4. regulation of post-op bowel pattern; no c/o constipation (or diarrhea) Social Work: Goals Discharge Plan Return home with home care svs and family support Potential for Family Training pt's family is involved and supportive Anticipated Discharge Home Destination Discharge With home care svs and family support Care Plan: Care Plan ADL's - Improve/Maintain Start: 04/20/16 16:11 Freq: DAILY Status: Active Target: Activity Type Activity Date Activity User E-Sign Co-Sign Detail Recorded Client Recorded Date Recorded By Document 05/09/16 14:57 [id number] 05/09/16 14:57 [id number] 05/09/16 14:57 PMRU Outcome: ADL's/ADL Transfers Orders/Interventions Occupational Therapy Evaluation & Treatment Communication Tool in Patient Room Device Yes Patient to receive OT 5x/wk for 60-120 Therex min/day Self Care Management Group Therapy UE/LE ADL's with Assist Yes: Dayana ADL Transfers with Assist Yes: Dayana Toileting: Transfers,Clothing Management Yes: Dayana ,Hygeine w/Assist Progression Toward Outcome/Goals Progressing Cardiovascular- Improve/Maintain Start: 04/19/16 14:31 Freq: DAILY Status: Complete Target: Activity Type Activity Date Activity User E-Sign Co-Sign Detail Recorded Client Recorded Date Recorded By Document 05/05/16 08:57 [id number] 05/05/16 08:58 [id number] 05/05/16 08:57 PMRU Outcome: Cardiovascular Vital Signs q Shift for 48hrs Then BID No Daily Weight Ordered No Current Cardiovascular Outcome/Goal Free of Abnormal Cardiac Symptoms Progression Toward Outcome/Goal Progressing Coping/Psych-Improve/Maintain Start: 04/19/16 14:31 Freq: DAILY Status: Complete Target: Activity Type Activity Date Activity User E-Sign Co-Sign Detail Recorded Client Recorded Date Recorded By Document 04/24/16 08:00 [id number] 04/24/16 11:26 [id number] 04/24/16 08:00 PMRU Outcome: Coping/Psychosocial Coping Outcome/Goals Verbalization of Acceptance of Rehab Admit Verbalization of Sense of Control Over Health Status Utilization of Appropriate Problem Solving Techniques Willingness to Participate in Treatment Plan and Basic Needs Utilization of Available Support Systems Absence of Destructive Behavior to Self/Others Psychosocial Outcome/Goals Maintain/ Improve Emotional Health Demonstrates Knowledge of Healthy Coping Mechanisms Available Cooperate/ Participate in Plan Coping Outcome/Goals Met Demonstrates Understanding of Rehab Admit and Goal Setting Process Starts to Plan for Necessary Lifestyle Role Changes Psychosocial Outcome/Goals Met Demonstrated Knowledge of Healthy Coping Mechanisms Available Cooperate/ Participated in Plan DVT Prophylaxis- Improve/Maintain Start: 04/19/16 14:31 Freq: DAILY Status: Complete Target: Activity Type Activity Date Activity User E-Sign Co-Sign Detail Recorded Client Recorded Date Recorded By Document 04/26/16 16:34 [id number] 04/26/16 16:45 [id number] 04/26/16 16:34 PMRU Outcome: DVT Prophylaxis Outcome/Goals Remains Free of DVT Complies with DVT Prophylaxis /Treatment Demonstrates Knowledge of DVT Prevention/ Treatment Other Outcome/Goals Met Remains Free of DVT Discharge Planning - Improve/Maintain Start: 04/19/16 14:31 Freq: DAILY Status: Active Target: Activity Type Activity Date Activity User E-Sign Co-Sign Detail Recorded Client Recorded Date Recorded By Document 05/09/16 01:19 [id number] 05/09/16 01:19 [id number] 05/09/16 01:19 PMRU Outcome: Discharge Planning Identify Patient Needs yes Update Patient Family No Outcome/Goals Demonstrates Understanding of Discharge Plan Progression Toward Outcome/Goals Progressing Outcome/Goals Met Comment pt very excited to being going home soon!! Education-Improve/Maintain Start: 04/19/16 14:31 Freq: DAILY Status: Active Target: Activity Type Activity Date Activity User E-Sign Co-Sign Detail Recorded Client Recorded Date Recorded By Document 05/09/16 16:36 [id number] 05/09/16 16:37 [id number] 05/09/16 16:36 PMRU Outcome: Education Outcome/Goals Demonstrate/ Verbalize Understanding of Written Discharge Instructions Demonstrates Skills Encourage Questions Progression Toward Outcome/Goals Progressing /GI-Improve/Maintain Start: 04/19/16 14:31 Freq: DAILY Status: Active Target: Activity Type Activity Date Activity User E-Sign Co-Sign Detail Recorded Client Recorded Date Recorded By Document 05/09/16 16:36 [id number] 05/09/16 16:37 [id number] 05/09/16 16:36 PMRU Outcome: Genitourinary/ Gastrointestinal Genitourinary- Outcome/Goals Maintain/ Achieve Urinary Continence Maintain/ Achieve Adequate Urinary Output Remain Free of Hospital- Acquired UTI Gastrointestinal-Outcome/Goals Maintain/ Achieve Bowel Regularity in Accordance with Pt's Baseline Remain Free of Emesis Prevent Constipation Laxatives as Ordered Progression Toward Outcome/Goals - Progressing Progression Toward Outcome/Goals - GI Progressing Medication Administration Start: 04/19/16 14:31 Freq: DAILY Status: Complete Target: Activity Type Activity Date Activity User E-Sign Co-Sign Detail Recorded Client Recorded Date Recorded By Document 04/24/16 08:00 [id number] [email or web address]-M01 04/24/16 11:26 [id number] 04/24/16 08:00 PMRU Outcome: Medication Administration Assess Patient Knowledge/Teach Med Yes Education for all Meds Outcome/Goals Patient Independent with Medication Administration at Home Demonstrates Understanding Outcome/Goals Met Patient Independent with Medication Administration at Home Demonstrates Understanding Is Patient Going Home on Lovenox? No Metabolic Status- Improve/Maintain Start: 04/19/16 14:31 Freq: DAILY Status: Complete Target: Activity Type Activity Date Activity User E-Sign Co-Sign Detail Recorded Client Recorded Date Recorded By Document 04/25/16 18:38 [id number] 04/25/16 18:39 [id number] 04/25/16 18:38 PMRU Outcome: Metabolic Status Have Fingersticks Been Ordered Yes Fingerstick Order Frequency Q Day Outcome/Goals Maintain/ Improve Metabolic Status Demonstrate Knowledge of Prevention/ Treatment of Metabolic Imbalances Outcome/Goals Met Maintain/ Improve Metabolic Status Demonstrate Knowledge of Prevention/ Treatment of Metabolic Imbalances Mobility- Improve/Maintain Start: 04/19/16 11:57 Freq: DAILY Status: Active Target: Activity Type Activity Date Activity User E-Sign Co-Sign Detail Recorded Client Recorded Date Recorded By Document 05/09/16 12:16 [id number] 05/09/16 12:16 [id number] 05/09/16 12:16 PMRU Outcome: Mobility Physical Therapy Evaluation and Yes Treatment Activity OOB with Assistance Yes TTWB Yes: LLE Device Yes Assistance Yes Patient to be seen 5x/wk for 60-120 min/ Therex day for: Mobility Training W/C Mobility Balance Outcome/Goals Maintain/ Achieve Baseline Mobility Status Improve Mobility Status Demonstrates Proper Use of Assistive Devices Free from Complications of Immobility Progression Toward Outcome/Goals Progressing Bed Mobility Yes: Independent Transfers Yes: Modified independent with RW Gait x ft No W/C Mobility x ft Yes: Independent 150 ' Up/Down Stairs Yes: Independent flight With HEP Yes: Independent Pain/Comfort- Improve/Maintain Start: 04/19/16 14:31 Freq: DAILY Status: Complete Target: Activity Type Activity Date Activity User E-Sign Co-Sign Detail Recorded Client Recorded Date Recorded By Document 04/25/16 18:38 [id number] 04/25/16 18:39 [id number] 04/25/16 18:38 PMRU Outcome: Pain/Comfort Outcome/Goals Demonstrates Knowledge and Use of Available Comfort Measures Achieves Acceptable Comfort/Pain Level as Determined by Patient/Condit Maintain Comfort Level Allowing Patient to Fully Participate in Rehab Outcome/Goals Met Demonstrates Knowledge and Use of Available Comfort Measures Achieves Acceptable Comfort/Pain Level as Determined by Patient/Condit Respiratory - Improve/Maintain Start: 04/19/16 14:31 Freq: DAILY Status: Active Target: Activity Type Activity Date Activity User E-Sign Co-Sign Detail Recorded Client Recorded Date Recorded By Document 05/09/16 16:36 [id number] 05/09/16 16:37 [id number] 05/09/16 16:36 PMRU Outcome: Respiratory Does Patient Have a Trach No Outcome/Goals Prevent Pneumonia/ Atelectasis Remain Aspiration Free Progression Toward Outcome/Goals Progressing Safety- Improve/Maintain Start: 04/19/16 14:31 Freq: DAILY Status: Complete Target: Activity Type Activity Date Activity User E-Sign Co-Sign Detail Recorded Client Recorded Date Recorded By Document 05/08/16 21:48 [id number] 05/08/16 21:48 [id number] 05/08/16 21:48 PMRU Outcome: Safety Outcome/Goals Prevent Falls/ Injury Progression Toward Outcome/Goals Progressing Outcome/Goals Met Remain Free of Injury or Harm Cooperates with Safety Measures for Least Restrictive Environment Skin- Improve/Maintain Start: 04/19/16 14:31 Freq: DAILY Status: Active Target: Activity Type Activity Date Activity User E-Sign Co-Sign Detail Recorded Client Recorded Date Recorded By Document 05/09/16 16:36 [id number] 05/09/16 16:37 [id number] 05/09/16 16:36 PMRU Outcome: Skin Skin Risk Level Medium Skin Orders Dressing Change Air Mattress Spenco Boots Turn/Position q2hr While in Bed Outcome/Goals Maintain/ Improve Skin Intergrity Maintain/ Improve Wound Status Surgical Incisions Healing Progression Toward Outcome/Goals Progressing Medicine Note: Length of Stay: 1 day Anticipated Discharge Destination: Home Tentative Discharge Date: 05/11/16 Discharged to: Home
[2016-05-10] MEDS: Cetirizine* 10 MG TAB PO SCH (16:58)
[2016-05-11] MEDS: Zinc Oxide 16% PASTE* (Butt Patse) 1 TUBE TOPICAL SCH ×2 (03:12→08:40)
[2016-05-11 05:09] VITALS: BP 140/62
[2016-05-11] MEDS: Docusate CAP* 100 MG PO SCH (07:21)
[2016-05-11] MEDS: Aspirin EC Low Dose* 81 MG TAB.EC PO SCH (07:21)
[2016-05-11] MEDS: IRBESARTAN 300 MG PO SCH (07:21)
[2016-05-11] MEDS: metFORMIN* 500 MG TAB PO SCH (07:21)
[2016-05-11] MEDS: Fluticasone NASAL SPRAY 50MCG* 16 gm SPRAY BTL BOTH NARES SCH (07:22)
[2016-05-11] MEDS: Potassium Chloride LIQUID* 20 MEQ PACKET PO SCH (07:22)
[2016-05-11] MEDS: Enoxaparin(*) 30 MG/0.3 ML SYR SUBCUT SCH (07:23)
[2016-05-11 07:35] LABS: Hematocrit 34 % (35-47); Hemoglobin 11.1 g/dl (12.0-16.0); Mean Corpuscular HGB Conc 33 g/dl (31-36); Mean Corpuscular Hemoglobin 31 pg (27-31); Mean Corpuscular Volume 93 fL (80-97); Mean Platelet Volume 9 um3 (7.4-10.4); Red Blood Count 3.62 10^6/ul (4.0-5.4); Red Cell Distribution Width 16 % (10.5-15); White Blood Count 4.9 10^3/ul (3.5-10.8)
[2016-05-11 07:56] LABS: Albumin 3.2 g/dL (3.2-5.2); BUN/Creatinine Ratio 22.7 (8-20); Calcium 9.5 mg/dL (8.6-10.3); EGFR African American 99.4 (>60); EGFR Non-African American 77.3 (>60); Globulin 3.2 g/dL (2-4); Potassium 4.2 mmol/L (3.5-5.0); Total Bilirubin 0.5 mg/dL (0.2-1.0); Total Protein 6.4 g/dL (6.4-8.9)
[2016-05-11] MEDS: traMADol TAB* 50 MG PO PRN (10:41)
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
== END 2016-05-11 10:00 | disposition home health service (06) | DRG 860 ==
LOC: PMRU 11:33
PROVIDERS: ADMIT Physical Medicine & Rehabilitation; ATTEND Physical Medicine & Rehabilitation
PROC: F07Z5ZZ Bed Mobility Treatment (ICD-10-PCS; principal; 2016-04-19)
PROC: F07Z9ZZ Gait Training/Functional Ambulation Treatment (ICD-10-PCS; 2016-04-19)
PROC: F07Z8ZZ Transfer Training Treatment (ICD-10-PCS; 2016-04-19)
PROC: F07Z4ZZ Wheelchair Mobility Treatment (ICD-10-PCS; 2016-04-19)
PROC: F08Z0ZZ Bathing/Showering Techniques Treatment (ICD-10-PCS; 2016-04-19)
PROC: F08Z1ZZ Dressing Techniques Treatment (ICD-10-PCS; 2016-04-19)
PROC: F08Z3ZZ Feeding/Eating Treatment (ICD-10-PCS; 2016-04-19)
PROC: 5A09457 Assistance with Respiratory Ventilation, 24-96 Consecutive Hours, Continuous Positive Airway Pressure (ICD-10-PCS; 2016-04-19)
DX: S72.22XD Displaced subtrochanteric fracture of left femur, subsequent encounter for closed fracture with routine healing (principal); Z68.42 Body mass index [BMI] 45.0-49.9, adult; I10 Essential (primary) hypertension; E87.6 Hypokalemia; E11.9 Type 2 diabetes mellitus without complications; B37.9 Candidiasis, unspecified; S22.41XD Multiple fractures of ribs, right side, subsequent encounter for fracture with routine healing; V49.88XD Car occupant (driver) (passenger) injured in other specified transport accidents, subsequent encounter; S30.810D Abrasion of lower back and pelvis, subsequent encounter; S80.211D Abrasion, right knee, subsequent encounter; S80.212D Abrasion, left knee, subsequent encounter; G47.33 Obstructive sleep apnea (adult) (pediatric); E66.01 Morbid (severe) obesity due to excess calories; Z79.82 Long term (current) use of aspirin; Z79.84 Long term (current) use of oral hypoglycemic drugs; Z79.1 Long term (current) use of non-steroidal anti-inflammatories (NSAID); Z79.899 Other long term (current) drug therapy; Z88.6 Allergy status to analgesic agent; Z88.5 Allergy status to narcotic agent; Z88.8 Allergy status to other drugs, medicaments and biological substances; Z83.3 Family history of diabetes mellitus; Z82.3 Family history of stroke; Z80.3 Family history of malignant neoplasm of breast
CPT/HCPCS: 36415; 80053; 84132; 85025; 86803; 94660; 94760; A9270-GY; J1650

== ENCOUNTER 2018-09-04 08:26 | Day surgery (SDC) | payer MEDICARE ==
[~2018-09-04 08:26] MED LIST: Acetaminophen TAB* 325 MG PO PRN; Buffered Lidocaine 1% SYRIN* 1 ML/SYRINGE INTRADERM ONE
[2018-09-04] MEDS ORDERED: Propofol* 10 MG/ML 20 ML BTL ONE (10:00)
[2018-09-04] MEDS ORDERED: Lidocaine 2% PF * 5 ML VIAL ONE (10:00)
[2018-09-04 11:00] VITALS: BP 156/88
[2018-09-04] MEDS ORDERED: Neomycin/Polymy/Dex OPHTH.OIN* 3.5 GM ONE (11:33)
[2018-09-04] MEDS ORDERED: Phenylephrine OPHTH SOL 2.5%* 2 ML ONE (11:33)
[2018-09-04] MEDS ORDERED: Cyclopentolate 1% OPTH.SOL* 2 ML BTL ONE (11:33)
[2018-09-04] MEDS ORDERED: Lidocaine 1%** 5 ML VIAL ONE (11:33)
[2018-09-04] MEDS ORDERED: Tropicamide 1% OPTH.SOL* BTL ONE (11:33)
[2018-09-04] MEDS ORDERED: Tetracaine 0.5% OPTH.SOL 4 ML* 1 DROP BTL ONE (11:34)
[2018-09-04] MEDS ORDERED: Ketorolac 0.5% OPHTH (NF) 0.5 % 5 ML BTL ONE (11:34)
--- NOTE | 2018-09-04 11:42 | OP ---
OPERATIVE REPORT: DATE OF OPERATION: 09/04/18 - [facility] DATE OF : 48 SURGEON: Grayson Kohli MD. DUST CONTROL ENGINEER: None. ANESTHESIA: Topical with intravenous sedation. PRE-OP DIAGNOSIS: Cataract with astigmatism, right eye. POST-OP DIAGNOSIS: Cataract with astigmatism, right eye. OPERATIVE PROCEDURE: Phacoemulsification and cataract extraction with posterior chamber toric intraocular lens implant, right eye. COMPLICATIONS: None. ESTIMATED BLOOD LOSS: None. OPERATIVE FINDINGS: The patient was brought to the operating room and received intravenous sedation. A drop of Tetracaine was placed in her right eye. The patient was prepped and draped in the usual sterile fashion for ophthalmic surgery and attention was directed to the right eye where a speculum was placed. A paracentesis was created at the 11 o'clock position and 0.1 cc of 1% preservative- free lidocaine was injected into the anterior chamber followed by DisCoVisc. The eye was digitally stabilized while a 2.75 mm keratome was used to create a triplanar clear corneal incision at the 9 o'clock position. A continuous curvilinear capsulorrhexis was created with a cystotome and Utrata forceps. BSS on a cannula was used to hydrodissect the lens from the capsule. Phacoemulsification was performed in a [id number] technique to create 4 fragments, which were removed. Residual cortical material was removed with irrigation and aspiration. The capsular bag was polished. The anterior chamber and capsule were filled with ProVisc. The surface of the eye was irrigated with balanced saline solution. The eye pressure was measured with intraoperative tonometer. The ORA device was employed and suggested a proper lens power. An SN6AT4 10.0 diopter lens was opened. The on the ORA guided the axial alignment of the lens. The lens was inserted into the capsular bag and rotated properly. Irrigation and aspiration was then performed to remove viscoelastic from the eye. BSS on a cannula was used to hydrate the corneal stroma and seal the wound. At the end of the case, the pupil was round, the lens was centered stable and axial aligned, the eye pressure appeared normal and the wound was water tight. The speculum was removed and topical Maxitrol ointment was placed on the surface of the eye. The eye was closed, patched, and shielded. The patient was sent to recovery room in stable condition with postoperative instructions and a followup appointment given. [id number]/[facility] #: [id number] SHONNA
== END 2018-09-04 10:53 | disposition home or self-care (01) ==
LOC: OREAST 08:26
PROVIDERS: ATTEND Ophthalmology
DX: Z01.818 Encounter for other preprocedural examination (principal); H25.13 Age-related nuclear cataract, bilateral; H52.221 Regular astigmatism, right eye; I10 Essential (primary) hypertension; E11.9 Type 2 diabetes mellitus without complications; Z88.1 Allergy status to other antibiotic agents; Z88.5 Allergy status to narcotic agent; Z88.8 Allergy status to other drugs, medicaments and biological substances; E66.9 Obesity, unspecified; E78.5 Hyperlipidemia, unspecified; G47.30 Sleep apnea, unspecified
CPT/HCPCS: A9270-GY; J2704; V2787

== ENCOUNTER 2018-09-11 09:52 | Day surgery (SDC) | payer MEDICARE ==
[2018-09-11] MEDS ORDERED: fentaNYL* 50 MCG/ML 2 ML VIAL (100 MCG VIAL) ONE (10:01)
[2018-09-11] MEDS ORDERED: Midazolam* 1 MG/ML 2 ML VIAL (2 MG) ONE (10:02)
[2018-09-11 11:26] VITALS: BP 150/70
--- NOTE | 2018-09-11 12:32 | OP ---
DATE OF OPERATION: 09/11/18 - [facility] DATE OF : 48 SURGEON: Dr. Grayson Kohli. RECYCLING COORDINATOR: None. ANESTHESIA: Topical with intravenous sedation. PRE-OP DIAGNOSIS: Cataract, left eye with astigmatism. POST-OP DIAGNOSIS: Cataract, left eye with astigmatism. OPERATIVE PROCEDURE: Phacoemulsification and cataract extraction with posterior chamber toric intraocular lens implant, left eye. COMPLICATIONS: None. BLOOD LOSS: None. DESCRIPTION OF PROCEDURE: The patient was brought to the operating room and received intravenous sedation. A drop of Tetracaine was placed in her left eye. The patient was prepped and draped in the usual sterile fashion for ophthalmic surgery and attention was directed to the left eye where a speculum was placed. A paracentesis was created at the 5 o'clock position and 0.1 cc of 1% preservative- free lidocaine was injected into the anterior chamber followed by DisCoVisc. The eye was digitally stabilized while a 2.75 mm keratome was used to create a triplanar clear corneal incision at the 3 o'clock position. A continuous curvilinear capsulorrhexis was created with a cystotome and Utrata forceps. BSS on a cannula was used to hydrodissect the lens from the capsule. Phacoemulsification was performed in a [id number]-wev-yumjxpi technique to create 4 fragments which were removed. Residual cortical material was removed with irrigation and aspiration. The capsular bag was polished. ProVisc was used to inflate the capsular bag. The surface of the eye was lubricated with balanced saline solution and the intraocular pressure was checked with a tonometer. The ORA device was employed to help guide lens choice. An SN6AT3 11.0 diopter lens was folded and inserted into the capsular bag. It was dialed to the 88 degree axis with a Sinskey hook. Irrigation and aspiration were performed to remove viscoelastic from the eye, while the Sinskey hook remained in the eyes of the paracentesis to stabilize the lens. Subsequently, the Sinskey hook removed and balanced saline solution was used to hydrate the corneal stroma and seal the wound. At the end of the case, the pupil was round, the lens was centered stable in axial line, the eye pressure appeared normal and the wound was water tight. The speculum was removed and topical Maxitrol ointment was placed on the surface of the eye. The eye was closed, patched and shielded and the patient was sent to the recovery room in stable condition with post operative instructions and followup appointment given. [id number]/[facility] #: [id number] SHONNA
[2018-09-11] MEDS ORDERED: Tropicamide 1% OPTH.SOL* BTL ONE (14:40)
[2018-09-11] MEDS ORDERED: Lidocaine 1%** 5 ML VIAL ONE (14:40)
[2018-09-11] MEDS ORDERED: Cyclopentolate 1% OPTH.SOL* 2 ML BTL ONE (14:40)
[2018-09-11] MEDS ORDERED: Neomycin/Polymy/Dex OPHTH.OIN* 3.5 GM ONE (14:40)
[2018-09-11] MEDS ORDERED: Ketorolac 0.5% OPHTH (NF) 0.5 % 5 ML BTL ONE (14:40)
[2018-09-11] MEDS ORDERED: Phenylephrine OPHTH SOL 2.5%* 2 ML ONE (14:40)
[2018-09-11] MEDS ORDERED: Tetracaine 0.5% OPTH.SOL 4 ML* 1 DROP BTL ONE (14:40)
== END 2018-09-11 11:32 | disposition home or self-care (01) ==
LOC: OREAST 09:52
PROVIDERS: ATTEND Ophthalmology
DX: H25.12 Age-related nuclear cataract, left eye (principal); H52.202 Unspecified astigmatism, left eye; G47.33 Obstructive sleep apnea (adult) (pediatric); I10 Essential (primary) hypertension; E11.9 Type 2 diabetes mellitus without complications
CPT/HCPCS: A9270-GY; J2250; J3010; V2787